=== PATIENT | male | born 1985 | race Caucasian/White ===

== ENCOUNTER 2022-11-13 12:19 | Emergency (ER) | payer MEDICAID, OTHER ==
[~2022-11-13] VITALS: Ht 188 cm; Wt 90.7 kg
[2022-11-13 12:25] VITALS: BP 141/89; TEMP 98.1; O2SAT 100
[2022-11-13] MEDS ORDERED: CIPR5DRO LEFTEYE (12:45)
== END 2022-11-13 12:59 | disposition home or self-care (01) ==
LOC: ER 12:25
DX: H10.9 Unspecified conjunctivitis (principal); Z90.49 Acquired absence of other specified parts of digestive tract; Z60.2 Problems related to living alone